=== PATIENT | male | born 1985 | race Hispanic/Latino ===

== ENCOUNTER 2018-08-23 10:55 | Inpatient (IN) | payer BC ==
--- NOTE | 2018-08-23 11:31 | C.PDOC ---
Time Seen by Provider: 08/23/18 11:25 Chief Complaint (Nursing): Substance Abuse Past Medical History Vital Signs: Last Vital Signs Temp 98.5 F 08/23/18 11:02 Pulse 86 08/23/18 11:02 Resp 20 08/23/18 11:02 BP 146/99 H 08/23/18 11:02 Pulse Ox 96 08/23/18 11:02 - Medical History PMH: HTN, Hypercholesterolemia - Social History Hx Alcohol Use: Yes Hx Substance Use: No - Immunization History Hx Tetanus Toxoid Vaccination: No Hx Influenza Vaccination: Yes (2 weeks ago) Hx Pneumococcal Vaccination: Yes (2 weeks ago) ED Course And Treatment O2 Sat by Pulse Oximetry: 96 Disposition - Disposition
--- NOTE | 2018-08-23 11:38 | C.PDOC ---
History Of Present Illness 32 year old male presents to ED requesting pre-screen for alcohol detox. Patient reports that his last drink was this morning. He denies any other drug use. Patient is currently asymptomatic. <Latisha Moreland - Last Filed: 08/23/18 12:47> History Per: Patient History/Exam Limitations: no limitations Onset/Duration Of Symptoms: Other (asymptomatic) Modifying Factor(s): Alcohol Associated Symptoms: denies: Suicidal Thoughts Additional History Per: Patient <Latisha Moreland - Last Filed: 08/23/18 12:47> <Fidelina Yang - Last Filed: 08/23/18 16:49> Time Seen by Provider: 08/23/18 11:25 Chief Complaint (Nursing): Substance Abuse Past Medical History Reviewed: Historical Data, Nursing Documentation, Vital Signs Vital Signs: Last Vital Signs Temp 98.5 F 08/23/18 11:02 Pulse 86 08/23/18 11:02 Resp 20 08/23/18 11:02 BP 146/99 H 08/23/18 11:02 Pulse Ox 96 08/23/18 11:31 - Medical History PMH: HTN, Hypercholesterolemia Surgical History: No Surg Hx Family History: States: Unknown Family Hx - Social History Hx Alcohol Use: Yes Hx Substance Use: No - Immunization History Hx Tetanus Toxoid Vaccination: No Hx Influenza Vaccination: Yes (2 weeks ago) Hx Pneumococcal Vaccination: Yes (2 weeks ago) <Latisha Moreland - Last Filed: 08/23/18 12:47> Vital Signs: Last Vital Signs Temp 98.5 F 08/23/18 11:02 Pulse 74 08/23/18 15:51 Resp 20 08/23/18 15:51 BP 140/77 08/23/18 15:51 Pulse Ox 97 08/23/18 15:51 <Fidelina Yang - Last Filed: 08/23/18 16:49> Review Of Systems Constitutional: Negative for: Fever, Chills, Weakness Eyes: Negative for: Redness Cardiovascular: Negative for: Chest Pain, Palpitations Respiratory: Negative for: Cough, Shortness of Breath Gastrointestinal: Negative for: Nausea, Vomiting, Abdominal Pain Genitourinary: Negative for: Dysuria, Hematuria Neurological: Negative for: Weakness, Numbness, Dizziness <Latisha Moreland - Last Filed: 08/23/18 12:47> Physical Exam - Physical Exam Appears: Well, Non-toxic, No Acute Distress Skin: Normal Color, Warm, Dry Head: Atraumatic, Normacephalic Eye(s): bilateral: Normal Inspection, PERRL, EOMI Neck: Normal ROM, Supple Chest: Symmetrical, No Deformity Cardiovascular: Rhythm Regular, No Murmur Respiratory: No Accessory Muscle Use, No Rales, No Rhonchi, No Wheezing, Other (NARD) Gastrointestinal/Abdominal: Soft, No Tenderness Extremity: Capillary Refill (<2 seconds) Extremity: Bilateral: Atraumatic, Normal Color And Temperature Pulses: Left Radial: Normal, Right Radial: Normal Neurological/Psych: Oriented x3, Normal Speech, Normal Cognition <Latisha Moreland - Last Filed: 08/23/18 12:47> ED Course And Treatment - Laboratory Results Result Diagrams: 08/23/18 11:45 08/23/18 11:45 O2 Sat by Pulse Oximetry: 96 (RA) Progress Note: Labs ordered with UA and drug screen for patient. Crisis evaluation ordered for patient. <AnicetoLatisha - Last Filed: 08/23/18 12:47> - Laboratory Results Result Diagrams: 08/23/18 11:45 08/23/18 11:45 Lab Results: Total Bilirubin 0.9 mg/dL (0.2-1.3) 08/23/18 11:45 AST 94 U/L (17-59) H 08/23/18 11:45 ALT 48 U/L (21-72) 08/23/18 11:45 Alkaline Phosphatase 63 U/L (38-126) 08/23/18 11:45 Total Protein 9.0 g/dL (6.3-8.3) H 08/23/18 11:45 Albumin 5.2 g/dL (3.5-5.0) H 08/23/18 11:45 Globulin 3.7 gm/dL (2.2-3.9) 08/23/18 11:45 Albumin/Globulin Ratio 1.4 (1.0-2.1) 08/23/18 11:45 Urine Color Colorless (YELLOW) 08/23/18 11:45 Urine Clarity Clear (Clear) 08/23/18 11:45 Urine pH 6.0 (5.0-8.0) 08/23/18 11:45 Ur Specific [facility] 1.002 (1.003-1.030) L 08/23/18 11:45 Urine Protein Negative mg/dL (NEGATIVE) 08/23/18 11:45 Urine Glucose (UA) Normal mg/dL (Normal) 08/23/18 11:45 Urine Ketones Negative mg/dL (NEGATIVE) 08/23/18 11:45 Urine Blood Negative (NEGATIVE) 08/23/18 11:45 Urine Nitrate Negative (NEGATIVE) 08/23/18 11:45 Urine Bilirubin Negative (NEGATIVE) 08/23/18 11:45 Urine Urobilinogen Normal mg/dL (0.2-1.0) 08/23/18 11:45 Ur Leukocyte Esterase Neg Tim/uL (Negative) 08/23/18 11:45 Urine WBC (Auto) < 1 /hpf (0-5) 08/23/18 11:45 Progress Note: Admit to [address] Snow. Alcohol abuse disorder severe. <Fidelina Yang - Last Filed: 08/23/18 16:49> Progress - Re-Evaluation Re-evaluation Note: 08/23/18 11:38 D/W CRISIS WILL EVAL IN ER - Data Reviewed Data Reviewed: Lab, Old records <Latisha Moreland - Last Filed: 08/23/18 12:47> Disposition - Disposition Disposition Time: 13:00 <Latisha Moreland - Last Filed: 08/23/18 12:47> <Fidelina Yang - Last Filed: 08/23/18 16:49> - Disposition Condition: STABLE Forms: [facility] (Lebanese) - Clinical Impression Clinical Impression: Alcohol abuse - Scribe Statement The provider has reviewed the documentation as recorded by the Scribe (Luba Nicholson) All medical record entries made by the Scribe were at my direction and personally dictated by me. I have reviewed the chart and agree that the record accurately reflects my personal performance of the history, physical exam, medical decision making, and the department course for this patient. I have also personally directed, reviewed, and agree with the discharge instructions and disposition. <Latisha Moreland - Last Filed: 08/23/18 12:47> Physician Patient Turnover Patient Signed Over To: Fidelina Yang Handoff Comments: FU MED CLEAR, DISPO <Latisha Moreland - Last Filed: 08/23/18 12:47>
[2018-08-23 11:49] LABS: BASO # 0.1 K/uL (0.0-0.2); BASO % 1.1 % (0.0-2.0); EOS # 0.1 K/uL (0.0-0.7); EOS % 0.9 % (0.0-4.0); HEMOGLOBIN 15.2 g/dL (12.0-18.0); LYMPH # 1.7 K/uL (1.0-4.3); LYMPH % 28.2 % (20.0-40.0); MEAN CELL VOLUME 92.5 fL (80.0-94.0); MEAN CORPUSCULAR HEMOGLOBIN 31.5 pg (27.0-31.0); MEAN PLATELET VOLUME 7.7 fL (7.2-11.7); MONO # 0.7 K/uL (0.0-0.8); MONO % 11.6 % (0.0-10.0); NEUT # 3.5 K/uL (1.8-7.0); NEUT % 58.2 % (50.0-75.0); NRBC % 0.1 % (0.0-2.0); RBC 4.83 Mil/uL (4.40-5.90); RED CELL DISTRIBUTION WIDTH 13.4 % (11.5-14.5); WHITE BLOOD COUNT 6.1 K/uL (4.8-10.8)
[2018-08-23 11:53] LABS: URINE BILIRUBIN NEGATIVE (NEGATIVE); URINE BLOOD NEGATIVE (NEGATIVE); URINE CLARITY Clear (Clear); URINE COLOR Colorless (YELLOW); URINE GLUCOSE (UA) NORMAL (Normal); URINE LEUKOCYTE ESTERASE NEG Leu/uL (Negative); URINE PROTEIN NEGATIVE (NEGATIVE); URINE UROBILINOGEN NORMAL mg/dL (0.2-1.0)
[2018-08-23 12:03] LABS: ALB/GLOB RATIO 1.4 (1.0-2.1); ALBUMIN 5.2 g/dL (3.5-5.0); ALT/SGPT 48 U/L (21-72); AST/SGOT 94 U/L (17-59); BLOOD UREA NITROGEN 13 mg/dL (9-20); CALCIUM 9.5 mg/dl (8.6-10.4); GFR NON-AFRICAN AMERICAN > 60
[2018-08-23 12:27] LABS: BARBITURATES, UR NEGATIVE (NEGATIVE); BENZODIAZEPINES, UR NEGATIVE (NEGATIVE); OPIATES, UR NEGATIVE (NEGATIVE); PHENCYCLIDINE, UR NEGATIVE (NEGATIVE)
--- NOTE | 2018-08-23 18:52 | PCM.BM ---
<Kim Velasquez - Last Filed: 08/23/18 18:46> Treatment Plan Problems - Problems identified on initial assessmt Altered Health Maintenance related to excess alcohol consumption Date Initiated: 08/23/18 Time Initiated: 18:57 Assessment reference: NA Status: Active Altered thought process Date Initiated: 08/23/18 Time Initiated: 18:58 Assessment reference: NA Status: Active Treatment assets and liabiliti Patient Assests: cooperative, educated, ADL independent, good support system, financial stabiity Patient Liabilities: substance abuse - Milieu Protocol Maintain good personal hygiene: daily Encourage regular showers, daily Remind patient to perform daily oral care, daily Assist patient to perform ADL's Conduct patient checks and document Observation sheet: Q15 minutes Maintain personal safety: every shift Educate patient to report safety concerns to staff, every shift Monitor environment for contraband/sharps Medication safety: Monitor for expected outcome, potential side effects: every shift, Assess barriers to learning: every shift, Assess readiness for medication education: every shift <Guerita Briones - Last Filed: 08/24/18 12:55> - Diagnosis (1) Alcohol use disorder, severe, dependence Status: Acute Interventions: 08/24/18 12:56 * Assess 7x/week regarding severity of withdrawal * Educate regarding risks, benefits, side effects and alternatives of medications * Use Motivational Interviewing for abstinence * Use CBT for relapse prevention * Medication management for withdrawal symptoms * Encourage medication assisted treatment * <Pauline Mas - Last Filed: 08/24/18 15:31> Family Contact Family involvement: Family/SO is involved Family contact name: Family contacted how many times per week?: 3 - Goals for Treatment Patient goals for treatment: Complete detox and transition to an IOP. Discharge/Continuing Care - Education Needs Education Needs: Patient Medication, Patient Diagnosis/Disease Process, Patient Coping Skills, Patient Anger Management skills, Patient Placement options, Patient Community resources, Patient Other (Vivitrol for medication maintenance), Significant Other Diagnosis/Disease Process, Significant Other Community resources - Discharge Discharge Criteria: No longer exhibiting s/s of withdrawal, Reduction of target symptoms Discharge to:: Home, With Family - Treatment Team Participation Patient/Family/SO Statement: 08/24/18 15:30 "I gotta go back to work so I'll do an IOP. Discussed with Family/SO: No Was Patient/Family/SO present at Treatment Team Meeting: Yes
[2018-08-24] MEDS: Multiple Vitamins Tab PO SCH (09:24)
--- NOTE | 2018-08-24 10:09 | PCM.PSYCH ---
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 He presented to the [facility] ED on 08/23 and was admitted to the [facility] detox unit for alcohol detox. His initial level was 385 and then he started to withdraw. On examination the patient was pleasant and open to questioning. He comments uzma t he came to the [facility] detox unit to get clean and that he wants to finally stop his drinking. He explains that he has been drinking 2 pints of vodka and 3 beers daily and that he has been drinking for the last 16 years. He mentions that his drinking has been getting worse throughout the years. His last drink was on 08/23 at 11:00 PM, which consisted of 1 pint of vodka and 2 beers. His longest time sober was for 45 days in 2018 during which time he was attending a detox program at [facility] and in a rehabilitation unit called [facility], however he ended up relapsing commenting that he "didn't want it bad enough." He has a history of severe withdrawals and DT-like sxs last year but no seizures. He denies illicit drug use. He currently uses a vape as he is trying to quit smoking, going on to explain that he used to smoke 1 pack per day for greater than 20 years. He had been abusing opioids (painkillers) in the past but stopped with suboxone, however he went on abusing suboxone too and got it from the streets and then quit that later on. He denies suicidal ideations, homicidal ideations, auditory hallucinations, or visual hallucinations. However, he is still very anxious and somewhat depressed despite being on zoloft and seroquel PMHx: HTN - not well controlled, on Norvasc, though PsychHx: Genralized Anxiety Disorder and depression (Diagnosed in 2018) Psych Hospitalizations: Denies FMHx: Patient comments that he isnt sure. Medications: Zoloft 50mg QD, Seroquel 50mg HS, Norvasc 5mg QD Allergies: NKDA Current Medications: Active Medications Generic Name Dose Route Start Last Admin Trade Name Yaquelin PRN Reason Stop Dose Admin Amlodipine Besylate 5 mg 08/24/18 10:00 08/24/18 09:23 Norvasc PO 5 mg DAILY RIVAS Administration Chlordiazepoxide 25 mg 08/23/18 18:05 08/23/18 19:03 Librium PO 25 mg Q4H PRN Administration Alcohol Withdrawal Chlordiazepoxide 25 mg 08/24/18 10:00 08/24/18 09:24 Librium PO 08/29/18 09:59 25 mg Q6H RIVAS Administration Taper Clonidine HCl 0.1 mg 08/23/18 18:05 Catapres PO Q4H PRN Symptoms of alcohol withdrawl Folic Acid 1 mg 08/24/18 10:00 08/24/18 09:24 Folic Acid PO 1 mg DAILY RIVAS Administration Multivitamins 1 tab 08/24/18 10:00 08/24/18 09:24 Hexavitamin PO 1 tab DAILY RIVAS Administration Quetiapine Fumarate 50 mg 08/23/18 22:00 08/23/18 22:16 Seroquel PO 50 mg HS RIVAS Administration Sertraline HCl 50 mg 08/24/18 10:00 08/24/18 09:24 Zoloft PO 50 mg DAILY RIVAS Administration Thiamine HCl 100 mg 08/24/18 10:00 08/24/18 09:23 Vitamin B1 Tab PO 100 mg DAILY RIVAS Administration Trazodone HCl 50 mg 08/23/18 18:05 08/23/18 22:16 Desyrel PO 50 mg HS PRN Administration Insomnia Past Psychiatric History - Past Psychiatric History Previous Treatment History: Intensive Outpatient Pertinent Medical Hx (Current Medical&Sleep Prob, Allergies): Allergies Allergy/AdvReac Type Severity Reaction Status Date / Time No Known Allergies Allergy Verified 08/23/18 11:06 QUEtiapine [SEROquel] 50 mg PO HS 08/23/18 Sertraline [Zoloft] 50 mg PO DAILY 08/23/18 amLODIPine [Norvasc] 5 mg PO DAILY 08/23/18 Review of Systems - Psychiatric Psychiatric: Abnormal Sleep Pattern, Anhedonia, Anxiety, Behavioral Changes, Change in Appetite, Depression, Difficulty Concentrating, Irritability, Panic Attacks. absent: Hallucinations, Homicidal Ideation, Paranoia, Suicidal Ideation Mental Status Examination - Personal Presentation Personal Presentation: Looks stated age - Affect Affect: Constricted - Motor Activity Motor Activity: Calm - Reliability in Providing Information Reliability in Providing Information: Good - Speech Speech: Organized - Mood Mood: Depressed, Anxious - Formal Thought Process Formal Thought Process: No Impairment - Cognitive Functions Orientation: Person, Place, Situation, Time Sensorium: Alert Attention/Concentration: Easily distracted Estimate of Intelligence: Average Judgement: Intact, as evidence by: Insight regarding need for hospitalization Memory: Recent intact, as evidence by: Ability to recall events of the day, Remote intact, as evidenced by: Abilit to recall sig. life events - Risk Risk: Withdrawal, Diminished functioning - Strength & Assets Inventory Strength & Assets Inventory: Cooperative - Limitations Limitations: Other DSM 5 DX - DSM 5 DSM 5 Diagnosis: Alcohol withdrawal Alcohol use disorder, severe Opioid use d/o - severe, in early remission Tobacco use d/o - severe Generalized Anxiety Disorder deprressive d/o - unspecified - Recommended/Plan of Treatment Treatment Recommendations and Plan of Treatment: Taper with Librium Naltrexone for cravings Gabapentin for augmentation Continue his zoloft and seroquel - May increase doses As needed medications All risks, benefits and alternatives of the meds discussed, and the pt agreed and understood. Attend groups and activities Supportive therapy and psychoeducation PR for abstinence CBT for relapse prevention Refer to rehab or IOP, and self-help groups - he said he would prefer [facility] as he lives there Teach healthy lifestyle methods, i.e. diet, exercise, meditation Smoking cessation with PR Nicotine patch if needed 34 min? Projected ELOS: 4 days Prognosis: good - Smoking Cessation Smoking Cessation Initiated: Yes
[2018-08-24] MEDS ORDERED: Naltrexone 25 MG TAB PO SCH (11:45)
--- NOTE | 2018-08-25 08:13 | PCM.PYCHPN ---
Psychiatric Progress Note - Psychiatric Progress Note Patient seen today, length of contact: 16 min Patient Chief Complaint: I am still withdrawing Problems Identified/Issues Discussed: Patient was seen and evaluated, chart reviewed and discussed the staff. Patient reports withdrawal symptoms including headaches, sweating, anxiety and cramps. He reports anxiety but denies any feelings of hopelessness or helplessness. He denies any suicidal ideation or any homicidal ideation. He denies any auditory or visual hallucinations. He is taking medication but denies any side effects. Supportive therapy was given. Medication Change: Yes Medical Record Reviewed: Yes Mental Status Examination - Cognitive Function Orientation: Person, Place, Situation, Time Memory: Intact Attention: WNL Concentration: Poor Association: WNL Fund of Knowledge: Poor - Mood Mood: Depressed, Anxious - Affect Affect: Constricted - Speech Speech: Soft - Formal Thought Process Formal Thought Process: No Impairment - Suicidal Ideation Suicidal Ideation: No - Homicidal Ideation Homicidal Ideation: No Goal/Treatment Plan - Goal/Treatment Plan Need for Continued Stay: Remain at risks for inpatient hospitalization Progress Toward Problem(s) and Goals/Treatment Plan: Alcohol withdrawal Alcohol use disorder, severe Opioid use d/o - severe, in early remission Tobacco use d/o - severe Generalized Anxiety Disorder deprressive d/o - unspecified Taper with Librium Naltrexone for cravings Gabapentin for augmentation Continue his zoloft and seroquel - May increase doses As needed medications All risks, benefits and alternatives of the meds discussed, and the pt agreed and understood. Attend groups and activities Supportive therapy and psychoeducation MA for abstinence CBT for relapse prevention Refer to rehab or IOP, and self-help groups - he said he would prefer [facility] as he lives there Teach healthy lifestyle methods, i.e. diet, exercise, meditation Smoking cessation with MA Nicotine patch if needed
[2018-08-25] MEDS: Multiple Vitamins Tab PO SCH (09:21)
--- NOTE | 2018-08-26 09:08 | PCM.PYCHPN ---
Psychiatric Progress Note - Psychiatric Progress Note Patient seen today, length of contact: 16 min Patient Chief Complaint: I am feeling little better.' Problems Identified/Issues Discussed: Patient was seen and evaluated, chart reviewed and discussed the staff. As per staff, patient appears better than before. He reports a lot of improvement in the withdrawal symptoms but still reports some sweating and anxiety and headaches. He reports improvement in his anxiety. He denies any suicidal ideation or any homicidal ideation. He denies any auditory or visual hallucinations. He is taking medication but denies any side effects. Supportive therapy was given. Medication Change: Yes Medical Record Reviewed: Yes Mental Status Examination - Cognitive Function Orientation: Person, Place, Situation, Time Memory: Intact Attention: WNL Concentration: Poor Association: WNL Fund of Knowledge: Poor - Mood Mood: Depressed, Anxious - Affect Affect: Constricted - Speech Speech: Soft - Formal Thought Process Formal Thought Process: No Impairment - Suicidal Ideation Suicidal Ideation: No - Homicidal Ideation Homicidal Ideation: No Goal/Treatment Plan - Goal/Treatment Plan Need for Continued Stay: Remain at risks for inpatient hospitalization Progress Toward Problem(s) and Goals/Treatment Plan: Alcohol withdrawal Alcohol use disorder, severe Opioid use d/o - severe, in early remission Tobacco use d/o - severe Generalized Anxiety Disorder deprressive d/o - unspecified Taper with Librium Naltrexone for cravings Gabapentin for augmentation Continue his zoloft and seroquel - May increase doses As needed medications All risks, benefits and alternatives of the meds discussed, and the pt agreed and understood. Attend groups and activities Supportive therapy and psychoeducation NM for abstinence CBT for relapse prevention Refer to rehab or IOP, and self-help groups - he said he would prefer [facility] as he lives there Teach healthy lifestyle methods, i.e. diet, exercise, meditation Smoking cessation with NM Nicotine patch if needed
[2018-08-26 09:42] VITALS: RESP 18
[2018-08-26] MEDS: Multiple Vitamins Tab PO SCH (09:46)
--- NOTE | 2018-08-27 08:28 | PCM.PYCHDC ---
Mental Status Examination - Mental Status Examination Orientation: Person Discharge Summary - Discharge Note Consultations:: List each consultation separately and include: 1. Reason for request. 2. Findings. 3. Follow-up Summary of Hospital Course include:: 1. Description of specific treatment plan utilized for patients during their course of treatmen. 2. Summarize the time- course for resolution of acute symptoms and/or regressed behaviors. 3. Describe issues identified and worked on during hospitalization. 4. Describe medication utilized. 5. Describe medical problems identified and treated. 6. 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 He presented to the [facility] ED on 08/23 and was admitted to the [facility] detox unit for alcohol detox. His initial level was 385 and then he started to withdraw. On examination the patient was pleasant and open to questioning. He comments that he came to the [facility] detox unit to get clean and that he wants to finally stop his drinking. He explains that he has been drinking 2 pints of vodka and 3 beers daily and that he has been drinking for the last 16 years. He mentions that his drinking has been getting worse throughout the years. His last drink was on 08/23 at 11:00 PM, which consisted of 1 pint of vodka and 2 beers. His longest time sober was for 45 days in 2018 during which time he was attending a detox program at [facility] and in a rehabilitation unit called [facility], however he ended up relapsing commenting that he "didn't want it bad enough." He has a history of severe withdrawals and DT-like sxs last year but no seizures. He denies illicit drug use. He currently uses a vape as he is trying to quit smoking, going on to explain that he used to smoke 1 pack per day for greater than 20 years. He had been abusing opioids (painkillers) in the past but stopped with suboxone, however he went on abusing suboxone too and got it from the streets and then quit that later on. He denies suicidal ideations, homicidal ideations, auditory hallucinations, or visual hallucinations. However, he is still very anxious and somewhat depressed despite being on zoloft and seroquel PMHx: HTN - not well controlled, on Norvasc, though PsychHx: Genralized Anxiety Disorder and depression (Diagnosed in 2018) Psych Hospitalizations: Denies FMHx: Patient comments that he isnt sure. Medications: Zoloft 50mg QD, Seroquel 50mg HS, Norvasc 5mg QD Allergies: NKDA He will go to [facility] - Diagnosis (1) Alcohol use disorder, severe, dependence Current Visit: Yes Status: Acute - Final Diagnosis (DSM 5) Condition upon Discharge: STABLE Disposition: HOME/ ROUTINE Follow-up Treatment Plan: Taper with Librium Naltrexone for cravings Gabapentin for augmentation Continue his zoloft and seroquel - May increase doses As needed medications All risks, benefits and alternatives of the meds discussed, and the pt agreed and understood. Attend groups and activities Supportive therapy and psychoeducation MN for abstinence CBT for relapse prevention Refer to rehab or IOP, and self-help groups - he said he would prefer [facility] as he lives there Teach healthy lifestyle methods, i.e. diet, exercise, meditation Smoking cessation with MN Nicotine patch if needed 34 min? Prescriptions/Medication Reconciliation: amLODIPine [Norvasc] 5 mg PO DAILY #30 tab Naltrexone [Revia] 50 mg PO DAILY #30 tab QUEtiapine [SEROquel] 50 mg PO HS #30 tab Sertraline [Zoloft] 50 mg PO DAILY #30 tab traZODone [Desyrel] 50 mg PO HS PRN #30 tab PRN Reason: Insomnia
[2018-08-27 09:41] VITALS: BP 130/82; PULSE 62; TEMP 97.7; O2SAT 97
== END 2018-08-27 08:15 | disposition home or self-care (01) | DRG 895 ==
LOC: C.ER 10:55 → C.9E 16:50 → C.7D 17:48
PROVIDERS: ADMIT Psychiatry & Neurology Psychiatry; ATTEND Psychiatry & Neurology Psychiatry
PROC: HZ2ZZZZ Detoxification Services for Substance Abuse Treatment (ICD-10-PCS; principal; 2018-08-23)
PROC: HZ52ZZZ Individual Psychotherapy for Substance Abuse Treatment, Cognitive-Behavioral (ICD-10-PCS; 2018-08-23)
PROC: HZ59ZZZ Individual Psychotherapy for Substance Abuse Treatment, Supportive (ICD-10-PCS; 2018-08-23)
PROC: HZ56ZZZ Individual Psychotherapy for Substance Abuse Treatment, Psychoeducation (ICD-10-PCS; 2018-08-23)
DX: F10.230 Alcohol dependence with withdrawal, uncomplicated (principal); F11.10 Opioid abuse, uncomplicated; E78.00 Pure hypercholesterolemia, unspecified; F41.1 Generalized anxiety disorder; I10 Essential (primary) hypertension; Z72.0 Tobacco use; F32.9 Major depressive disorder, single episode, unspecified; Y90.8 Blood alcohol level of 240 mg/100 ml or more